=== PATIENT | female | born 1980 | race Caucasian/White ===

== ENCOUNTER 2021-03-10 17:45 | Emergency (ER) | payer OTHER ==
[~2021-03-10] VITALS: Ht 167.6 cm; Wt 145.2 kg
--- NOTE | ~2021-03-10 | EMS ---
[place] [address] EMS Patient Care Report Name: MARCELO HUFFMAN Room #: DEP LANDON Gómez#: [id number] Admission: 03/10/21 Attend Phys: Discharge: 03/10/21 Date of : 82 Report #: [id number] THIS REPORT FOR: //name// Report Transmitted: 03/10/2021 19:14 EMS Care Summary [place], [place]/[facility] Incident [id number] @ 03/10/2021 17:22 Incident Location [address] [place] [address] Patient MARCELO HUFFMAN Female, 40 Years 1980 Patient Address Patient History Asthma, Patient Allergies Shellfish allergy, Patient Medications Epinephrine Auto-injector, Chief Complaint ALLERGIC REACTION W/ SOA Disposition Transported No Lights/[place] Dispatch Reason Allergic Reaction/St[place] Transported To [facility] Narrative RESPONDED TO ALLERGIES OUTSID EOF [employer]. UPON ARRIVAL PT FOUND LAYING ON [place]EN[place] OUTSIDE ALERT AND ORIENTED BUT IN DISTRESS. PT ASSISTED TO COT AND SEATBELTS APPLIED. PT REPORTS HAVING EPI PENS FOR A SHELLFISH ALLERGY BUT NOT WITH HER. 0.15MG EPI 1:100 WAS PREPPED AND GIVEN IM VIA LATERAL LEFT THIGH. PT VITALS OBTAINED. PT GIVEN BREATHING TREATMENT AFTER HEARING WHEEZING AND NOT BEING ABLE TO SPEAK SENTENCES. IV AND 3 LEAD OBTAINED. [place] [address] EMS Patient Care Report Name: MARCELO HUFFMAN Room #: DEP [place]#: [id number] Admission: 03/10/21 Attend Phys: Discharge: 03/10/21 Date of : 82 Report #: [id number] [place] WITH ONE FF RIDER. 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 PT WAS ABLE TO SCOOT TO BED AND HANDRAILS UP. REPORT GIVEN TO NURSE. Initial Vitals @17:40P: 110,R: 20,BP: 130/74,SpO2: 98, @17:30P: 102,R: 22,BP: 110/82,Pain: 0/10,GCS: 15,Glucose: 133,SpO2: 98,Revised Trauma: 12, Assessments @17:30MENTAL:Place Oriented,Person Oriented,Time Oriented,Event Oriented,SKIN:Diaphoresis,HEENT:Head/Face: No Abnormalities,Neck/Airway: No Abnormalities,LUNG SOUNDS:General: No Abnormalities,Left Upper: No Abnormalities,Right Upper: No Abnormalities,Left Lower: No Abnormalities,Right Lower: No Abnormalities,ABDOMEN:General: No Abnormalities,Left Upper: No Abnormalities,Right Upper: No Abnormalities,Left Lower: No Abnormalities,Right Lower: No Abnormalities,PELVIS//GI:No Abnormalities,EXTREMITIES:Left Arm: No Abnormalities,Right Arm: No Abnormalities,Left Leg: No Abnormalities,Right Leg: No Abnormalities,PULSE:Radial: 2+ Normal,NEURO:No Abnormalities,@17:38MENTAL:Time Oriented,Event Oriented,Place Oriented,Person Oriented,SKIN:Diaphoresis,HEENT:Head/Face: No Abnormalities,Eyes: No Abnormalities,Neck/Airway: No Abnormalities,LUNG SOUNDS:General: No Abnormalities,Left Upper: No Abnormalities,Right Upper: No Abnormalities,Left Lower: No Abnormalities,Right Lower: No Abnormalities,ABDOMEN:General: No Abnormalities,Left Upper: No Abnormalities,Right Upper: No Abnormalities,Left Lower: No Abnormalities,Right Lower: No Abnormalities,PELVIS//GI:No Abnormalities,EXTREMITIES:Left Arm: No Abnormalities,Right Arm: No Abnormalities,Left Leg: No Abnormalities,Right Leg: No Abnormalities,PULSE:NEURO: Impression Allergic Reaction Procedures @17:33Albuterol - 2.5 Milligrams (mg) - NebulizedResponse: Improved@17:30ALS AssessmentResponse: UnchangedSucceeded@17:39Albuterol - 2.5 Milligrams (mg) - NebulizedResponse: Improved@17:33Atrovent - 0.5 Milligrams (mg) - NebulizedResponse: Improved@17:383-Lead ECGResponse: UnchangedSucceeded@17:36Saline Lock 3cc (22 ga) Site: Forearm-LeftResponse: UnchangedSucceeded@17:35Epinephrine 1:1 - 0.15 Milligrams (mg) - Intramuscular (IM)Response: Unchanged@17:41Epinephrine 1:1 - 0.15 Milligrams (mg) - Intramuscular (IM)Response: Improved Timeline 17:20,Call Received 17:20,Dispatch Notified [address] [address] EMS Patient Care Report Name: ARMIDAMARCELO Room #: LETICIA Gómez#: [id number] Admission: 03/10/21 Attend Phys: Discharge: 03/10/21 Date of : 82 Report #: [id number] 17:22,Dispatched 17:23,En Route 17:29,On Scene 17:30,At Patient 17:30,ALS Assessment,Response: UnchangedSucceeded, 17:30,BP: 110/82 M,PULSE: 102,RR: 22 R,SPO2: 98 Ox,ETCO2: ,B,PAIN: 0,GCS: 15, 17:33,Albuterol - 2.5 Milligrams (mg) - Nebulized,Response: Improved 17:33,Atrovent - 0.5 Milligrams (mg) - Nebulized,Response: Improved 17:35,Depart Scene 17:35,Epinephrine 1:1 - 0.15 Milligrams (mg) - Intramuscular (IM),Response: Unchanged 17:36,Saline Lock 3cc 22 ga Site: Forearm-Left,Response: UnchangedSucceeded, 17:38,3-Lead ECG,Response: UnchangedSucceeded, 17:39,Albuterol - 2.5 Milligrams (mg) - Nebulized,Response: Improved 17:40,BP: 130/74 M,PULSE: 110,RR: 20 R,SPO2: 98 Ox,ETCO2: ,BG: ,PAIN: ,GCS: , 17:41,Epinephrine 1:1 - 0.15 Milligrams (mg) - Intramuscular (IM),Response: Improved 17:42,At Destination 18:07,Call Closed Disclaimer v1.1 Copyright 2020 [employer] This EMS Care Summary contains data elements from the applicable legal record (which may be displayed differently). It is designed to provide pertinent information for the following purposes: continuity of care, clinical quality, and state data reporting. The complete legal record is available to ED staff and administrators of the receiving hospital in ES's Patient Tracker. All data is provided "as is."
[2021-03-10] MEDS ORDERED: ATIVAN1 M1 PO (19:36)
[2021-03-10] MEDS ORDERED: PREDNISONE50 MG PO (19:36)
[2021-03-10 19:57] VITALS: BP 153/73
--- NOTE | 2021-03-11 07:49 | EKG ---
[place] [address] [address] [facility] [place] [address] ELECTROCARDIOGRAM REPORT Name: MARCELO HUFFMAN Room #: DEP LANDON Gómez#: [id number] Admission: 03/10/21 Attend Phys: Discharge: 03/10/21 Date of : 82 Report #: [id number] [facility] ED Test Date: 2021-03-10 Test Time: 18:00:26 Pat Name: MARCELO HUFFMAN Department: Room: Gender: F [employer] Analyst: tarsha : 1980 Requested By: Moe Winters Order Number: [id number] MD: Maikol Pablo Measurements Intervals [place] Rate: 145 P: 62 MA: 118 QRS: 33 QRSD: 86 T: -2 QT: 287 QTc: 446 Interpretive Statements Sinus tachycardia Probable left atrial enlargement Borderline T abnormalities, inferior leads No previous ECG available for comparison Electronically Signed On 03-11-2021 7:49:04 CDT by Maikol Pablo [email or web address] <ELECTRONICALLY SIGNED> By: Maikol Pablo MD, [facility] 03/11/21 0749 1800 [facility] Maikol Pablo MD, FACC /EPI
== END 2021-03-10 20:00 | disposition home or self-care (01) ==
LOC: ER 17:45
DX: T78.49XA Other allergy, initial encounter (principal); Z88.0 Allergy status to penicillin; Z91.041 Radiographic dye allergy status